=== PATIENT | male | born 1995 | race Two or more races ===

== ENCOUNTER 2022-03-20 13:04 | Emergency (ER) | payer OTHER ==
[~2022-03-20] VITALS: Ht 167.6 cm; Wt 70.0 kg
[2022-03-20 15:56] VITALS: BP 137/85
[2022-03-20] MEDS ORDERED: IBUPROFEN 600 MG TABLET PO ONE (16:00)
== END 2022-03-20 16:48 | disposition home or self-care (01) ==
LOC: EMS 13:04
DX: S93.402A Sprain of unspecified ligament of left ankle, initial encounter (principal); W17.89XA Other fall from one level to another, initial encounter; Y93.89 Activity, other specified; Y92.89 Other specified places as the place of occurrence of the external cause; Y99.8 Other external cause status
CPT/HCPCS: 99283